=== PATIENT | female | born 1975 | race Caucasian/White ===

== ENCOUNTER 2018-06-21 20:10 | Inpatient (IN) | payer OTHER ==
[~2018-06-21] VITALS: Ht 152.4 cm; Wt 43.1 kg
--- NOTE | 2018-06-21 20:50 | NUR ---
Pre-Assessment Pt is a 42 year old female seen in [facility] intake. Pt is noted to be in wheelchair. Skin is flushed/clammy with noted gross tremors. Pt reports feeling anxious, when introductions are being made. Pt is initially able to respond to questions being asked, however gets very emotional and begins to cry whenever she states her answers. As pre-assessment continues, Pt becomes irritated with the questions, begins crying and states, "How many times do I have to tell you. You already asked me that". This response is repetitive, even though questions were asked for the first time. Pt requires constant redirection. Pt was able to state she is at [facility] for ETOH withdrawal. Pt reports she has been at [facility] ED, 06/21/2017, and has been discharged to be admitted to [facility]. Vital signs taken, rules of the unit explained such as vital signs Q4H, wasting of controlled substances, kitchen access, and smoking patio privileges. Will continue with admission process upon arrival on unit.
[2018-06-21] MEDS ORDERED: MAGNESIUM HYDROXIDE 30 ML LIQUID UDC PO PRN (21:30)
[2018-06-21] MEDS ORDERED: SRC ALCOHOL WITHDRAWAL ADMITTING PROTOCOL XX PRN (21:30)
[2018-06-21] MEDS ORDERED: LORAZEPAM 2 MG/1 ML VIAL IM PRN (21:30)
[2018-06-21] MEDS ORDERED: ONDANSETRON ODT 4 MG TAB.RAPDIS SL PRN (21:30)
[2018-06-21] MEDS ORDERED: LORAZEPAM 1 MG TABLET PO PRN (21:30)
[2018-06-21] MEDS ORDERED: MAG HYDROX/AL HYDROX/SIMETH 30 ML LIQUID UDC PO PRN (21:30)
[2018-06-21] MEDS ORDERED: MIRALAX 17 GM POWD.PACK PO PRN (21:30)
[2018-06-21] MEDS ORDERED: ONDANSETRON 4 MG/2 ML VIAL IM PRN (21:30)
[2018-06-21] MEDS ORDERED: ACETAMINOPHEN 325 MG TABLET PO PRN (21:30)
[2018-06-21] MEDS ORDERED: diphenhydrAMINE 50 MG CAPSULE PO PRN (21:30)
[2018-06-21] MEDS ORDERED: LOPERAMIDE HCL 2 MG CAPSULE PO PRN ×2 (21:30)
[2018-06-21 21:51] LABS: BASOPHILS % (AUTO) 0.5 % (0.0-2.0); EOSINOPHILS % (AUTO) 0.7 % (0.0-7.0); HEMATOCRIT 34.8 % (31.2-41.9); HEMOGLOBIN 12.2 g/dL (10.9-14.3); LYMPHOCYTES # (AUTO) 0.8 K/uL (20.0-40.0); LYMPHOCYTES % (AUTO) 10.3 % (20.5-51.5); MEAN CORPUSCULAR HGB CONC 35 g/dL (32.3-35.6); MEAN CORPUSCULAR VOLUME 96.5 fL (75.5-95.3); MONOCYTES # (AUTO) 0.5 K/uL (2.0-10.0); MONOCYTES % (AUTO) 7.5 % (0.0-11.0); PLATELET COUNT (AUTO) 282 K/uL (179-408); WHITE BLOOD COUNT (AUTO) 7.4 K/uL (3.8-11.8)
[2018-06-21 21:52] LABS: *URINE HCG, QUAL NEGATIVE (NEGATIVE)
[2018-06-21] MEDS ORDERED: THIAMINE HCL 200 MG/2 ML VIAL IM ONE (22:00)
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
[2018-06-21 22:01] LABS: *AMPHETAMINE, URINE NEGATIVE (NEGATIVE); *BARBITURATE, URINE NEGATIVE (NEGATIVE); *CANNABINOID, URINE NEGATIVE (NEGATIVE); *COCCAINE, URINE NEGATIVE (NEGATIVE); *OPIATE, URINE NEGATIVE (NEGATIVE); *PHENCYCLIDINE SCREEN,URINE NEGATIVE (NEGATIVE)
[2018-06-21 22:07] LABS: ETHANOL < 3 MG/DL (0-0)
[2018-06-21 22:10] LABS: ALANINE AMINOTRANSFERASE 138 U/L (14-59); ALKALINE PHOSPHATASE 111 U/L (50-136); AMYLASE 63 U/L (25-115); ASPARTATE AMINOTRANSFERASE 130 U/L (15-37); BILIRUBIN,TOTAL 0.8 mg/dL (0.2-1.0); CARBON DIOXIDE 27 mmol/L (21-32); CHLORIDE 93 mmol/L (98-107); CREATININE 0.6 mg/dL (0.6-1.3); GLUCOSE 86 mg/dL (74-106); LIPASE 202 U/L (73-393); MAGNESIUM 1.7 mg/dL (1.8-2.4); TOTAL PROTEIN, SERUM 8.4 g/dL (6.4-8.2); UREA NITROGEN, BLOOD 13 mg/dL (7-18)
[2018-06-21 22:14] LABS: POTASSIUM 2.7 mmol/L (3.5-5.1)
[2018-06-21] MEDS: IBUPROFEN 600 MG TABLET PO PRN (22:20)
[2018-06-21] MEDS: LORAZEPAM 1 MG TABLET PO PRN (22:20)
--- NOTE | 2018-06-21 22:20 | NUR ---
PRN Valium and Motrin administration Patient is irritable, emotional, anxious, restless, agitated, has bilateral hand tremors and generalized body aches .CIWA 16 Addendum: 06/22/18 at 0610 by RAJI OLMSTEAD LVN Error: Patient was not given an Ativan
--- NOTE | 2018-06-21 22:20 | NUR ---
PRN Ativan and Motrin administration Patient is irritable, emotional, anxious, restless, agitated, has bilateral hand tremors and generalized body aches .CIWA 16
[2018-06-21 22:21] LABS: THYROID STIMULATING HORMONE 5.383 mIU/mL (0.358-3.740)
[2018-06-21] MEDS ORDERED: POTASSIUM CHLORIDE 20 MEQ TAB.PRT.SR PO ONE (23:00)
--- NOTE | 2018-06-21 23:20 | NUR ---
PRN Motrin and Ativan re-assessment Patient Motrin and Ativan helpful and effective. CIWA 12
[2018-06-21] MEDS ORDERED: MAGNESIUM OXIDE 400 MG TABLET PO ONE (23:30)
[2018-06-22] VITALS: BP 134/88
[2018-06-22] MEDS ORDERED: ONDA4TAB11 PO (00:52)
[2018-06-22] MEDS ORDERED: CHLO25CA10 PO (00:52)
[2018-06-22 04:00] VITALS: BP 131/87
--- NOTE | 2018-06-22 05:35 | NUR ---
PRN Ativan administration Patient reports anxiety, restlessness and has bilateral hand tremors. CIWA 11
--- NOTE | 2018-06-22 06:35 | NUR ---
PRN Ativan re-assessment Ativan unable to re-assess. Patient lying in bed with eyes closed. Respiration even and unlabored. Will continue to monitor
--- NOTE | 2018-06-22 07:27 | NUR ---
End of shift note Patient slept 3 hours. Fluid intake 1,000 ml. Voided x 4 . No BM. Patient has laceration on top of her head and left hand swollen. Dr. Joel aware with no new order. Patients magnesium was replaced. Potassium level was 2.7 and was replaced. Patient was anxious, restless, irritable , has bilateral hand tremors and generalized discomfort. CIWA was 16 upon admission. PRN Ativan 2 mg and Motrin given. Patient had difficulty falling asleep during the night. At 0535, patient was anxious and restless. PRN Ativan 1 mg. Safety measures in place. Will continue to monitor.
--- NOTE | 2018-06-22 07:35 | NUR ---
START OF SHIFT Endorse rcvd from ongoing nurse, client is in room, a/o x 4, she appears disheveled, malnourished, dark [place] under his eyes. She presents with anxious mood, flat affect, flushed facial skin, gross tremors, difficulty thinking clearly, and difficulty concentrating. Client reports headache, anxiety, and sweats. Client is on 1:1 sitter promoting safety, d/t BLE weakness. Encourage client to increase PO fluid intake as tolerated to facilitate detox. PRN Ativan 2mg PO for CIWA 11 @ 0535. Client slept for 3 hrs. Seizure precautions. Side rails x 2 up/padded. Call light within reach. Will continue to monitor.
[2018-06-22 08:03] LABS: CREATININE 0.7 mg/dL (0.6-1.3); POTASSIUM 3.2 mmol/L (3.5-5.1)
[2018-06-22] MEDS: IBUPROFEN 600 MG TABLET PO PRN (08:20)
[2018-06-22] MEDS: THIAMINE HCL 100 MG TABLET PO SCH (08:20)
[2018-06-22] MEDS: FOLIC ACID 1 MG TABLET PO SCH (08:20)
[2018-06-22] MEDS: MULTIVITAMINS,THERAPEUTIC TABLET PO SCH (08:20)
[2018-06-22] MEDS: LORAZEPAM 1 MG TABLET PO PRN (08:25)
--- NOTE | 2018-06-22 08:25 | NUR ---
CIWA 21 & PRN Ativan 2mg PO, Motrin 600mg PO for NG 6/10 administered Client is alert, orient to name, place, and situation. Client appears disheveled, malnourished, dark [place] under his eyes, anxious mood, flat affect, flushed facial skin, gross tremors, difficulty thinking clearly, and difficulty concentrating. Client reports headache, anxiety, and sweats. Encourage client to increase PO fluid intake to facilitated detox. Call light within reach. Will continue to monitor. Sitter at bedside promoting safety d/t lower lower extremities weakness.
[2018-06-22 08:29] VITALS: BP 129/89
[2018-06-22] MEDS ORDERED: TUBERCULIN,PURIF.PROT.DERIV. 5 TU/0.1 ML TEST ID ONE (09:00)
--- NOTE | 2018-06-22 09:25 | NUR ---
Reassess PRN Ativan 2mg PO, Motrin 600mg, client is in bed, sounds asleep, easy to awaken, RR 16, spO2 @ 97% on RA. Will continue to monitor. Call light within reach.
--- NOTE | 2018-06-22 09:36 | NUR ---
[facility] 13 Client presents with anxious mood, anhedonia, cold/chills, body aches, restless legs, sweats, clammy skin, and agitation. Schedule Valium 5mg PO. Call light within reach. Will continue to monitor. Addendum: 06/22/18 at 1013 by BEATRICE CREWS RN Wrong Client
[2018-06-22] MEDS ORDERED: 5 DAY TAPER OF LORAZEPAM -SERENITY PROTOCOL PO PRN (11:30)
[2018-06-22] MEDS ORDERED: POTASSIUM CHLORIDE 20 MEQ TAB.PRT.SR PO ONE (11:30)
--- NOTE | 2018-06-22 11:58 | NUR ---
Air Pollution Auditor completed L wrist XR
--- NOTE | 2018-06-22 12:32 | NUR ---
K-dur 40mEq PO administered as supplement for Potassium 3.2.
[2018-06-22 12:33] VITALS: BP 149/99
[2018-06-22] MEDS: LORAZEPAM 1 MG TABLET PO SCH ×3 (12:33→20:57)
--- NOTE | 2018-06-22 12:33 | NUR ---
CIWA 22 Client presents with anxious mood, agitation, gross tremors, clod/chills, nauseous, sweats, difficulty concentrating, difficulty thinking clearly, emotional volatility. Client reports feeling irritable, emotional, anxious, restlessness, and shaking. Schedule Ativan 2mg PO administered. Will continue to monitor. Call light within reach. Sitter at bedside.
--- NOTE | 2018-06-22 13:33 | NUR ---
PRN ZOFRAN Patient reported feeling nauseated no episode of emesis present, PRN Zofran 4mg SL given as ordered. Will cont to monitor and reassess for effectiveness.
--- NOTE | 2018-06-22 14:33 | NUR ---
Reassess Zofran 4mg SL, client reports relief from nausea.
--- NOTE | 2018-06-22 16:15 | NUR ---
CIWA 18 Client continues to presents with anxiety, gross tremors, irritability, stomach cramps, poor appetite, and fatigue. Schedule Valium 5mg PO administered. call light within reach.
[2018-06-22 16:19] VITALS: BP 132/87
--- NOTE | 2018-06-22 19:23 | NUR ---
END OF SHIFT Endorse client to incoming nurse, client is in room, a/o x 4, client continues to presents with anxiety, gross tremors, irritability, stomach cramps, poor appetite, and fatigue. Client denies N/V/D. L wrist/hand swollen, impression from X-ray's shows no fracture. Client continue on a 1:1 sitter promoting safety. Client is on 1st of 5 day Valium taper. Last CIWA 18 @ 1600. PRN medications administered and noted per protocol. Client is not compliant with group therapy due to above withdrawal symptoms. Consumes 50% of meals. Adequate PO fluid intake 2628mL, void x 6, stool x 2. Call light within reach.
[2018-06-22 20:00] VITALS: BP 121/74
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
[2018-06-22] MEDS ORDERED: DICYCLOMINE HCL 20 MG TABLET PO ONE (20:45)
[2018-06-22] MEDS: MIRTAZAPINE 15 MG TABLET PO SCH (20:57)
--- NOTE | 2018-06-22 20:58 | NUR ---
One-time Bentyl Patient c/o abdominal cramps. Contacted MD and he ordered one-time Bentyl 20 mg PO. Administered. Will reassess.
--- NOTE | 2018-06-22 21:58 | NUR ---
Laron reassess Patient asleep on bed, with no SOB nor facial grimacing noted. Addendum: 06/23/18 at 0152 by RUSTY CONNER RN Correction: Susana reassess
[2018-06-22] MEDS: HYDROXYZINE PAMOATE 25 MG CAPSULE PO PRN (23:28)
[2018-06-22] MEDS: CLONIDINE HCL 0.1 MG TABLET PO PRN (23:29)
--- NOTE | 2018-06-22 23:30 | NUR ---
PRN Clonidine and Vistaril Patient reported that she was asleep when the knock on her door woke her up. She appears anxious, agitated and with tremors. Administered Clonidine 0.1 mg PO PRN and Vistaril 50 mg PO PRN. Will reassess.
[2018-06-23 00:30] VITALS: BP 132/81
--- NOTE | 2018-06-23 00:30 | NUR ---
Clonidine and Vistaril reassess Patient continues to be easily agitated, is tremulous, fidgety, restless, with gross tremors, flushed skin and is noted to be guarded. Patient verbalized that she feels like someone is starting at her all the time with 1:1 around and it makes her "uncomfortable". 1:1 was spoken to and it was also explained to patient the importance of the 1:1 sitter. Patient also continues to ambulate with unsteady gait. CIWA=19. contacted and ordered one-time Ativan 2 mg PO. Will carry out order.
[2018-06-23] MEDS ORDERED: LORAZEPAM 1 MG TABLET PO ONE (00:45)
[2018-06-23] MEDS ORDERED: LORAZEPAM 1 MG TABLET PO PRN (01:00)
--- NOTE | 2018-06-23 01:30 | NUR ---
One-time Ativan reassess Patient was given Ativan 2 mg one-time PO for increasing anxiety, agitation and tremulousness. Patient verbalized that her anxiety was relieved, with less tremors and restlessness. Patient verbalized that she is ready to go to be "very soon". 1:1 is at the bedside. CIWA=13.
--- NOTE | 2018-06-23 04:00 | NUR ---
CIWA deferred Patient is asleep on bed, with no SOB nor facial grimacing noted. With 1:1 sitter at bedside. CIWA deferred per MD order.
[2018-06-23 05:00] VITALS: BP 127/85
[2018-06-23 07:18] LABS: ALANINE AMINOTRANSFERASE 95 U/L (14-59); ALKALINE PHOSPHATASE 95 U/L (50-136); ASPARTATE AMINOTRANSFERASE 79 U/L (15-37); BILIRUBIN,DIRECT 0.1 mg/dL (0.0-0.2); BILIRUBIN,TOTAL 0.4 mg/dL (0.2-1.0); CARBON DIOXIDE 25 mmol/L (21-32); CHLORIDE 102 mmol/L (98-107); CREATININE 0.7 mg/dL (0.6-1.3); GLUCOSE 109 mg/dL (74-106); POTASSIUM 4.4 mmol/L (3.5-5.1); TOTAL PROTEIN, SERUM 7.1 g/dL (6.4-8.2); UREA NITROGEN, BLOOD 23 mg/dL (7-18)
--- NOTE | 2018-06-23 07:18 | NUR ---
End of Shift Patient continues to be hyperverbal, emotionally labile and has racing thoughts. She is disheveled and continues to have erratic episodes of anxiety and with gross tremors. She is guarded and was paranoid at times during the shift. Patient's dry scab on the back of her head is noted to have no bleeding noted. Patient continues to have swollen left head and wrist, with pain upon palpation. Patient verbalized relief that negative X-ray results were relayed to her. Patient c/o intermittent nausea, sweating and hot flushes throughout the shift. PRN Clonidine and Vistaril administered during the shift. One-time Ativan 2mg PO and Bentyl 20 mg PO were also administered and they alleviated patient's withdrawal symptoms. Second day of the 5-day Ativan taper to start today. Fall, universal, seizure and safety prec in place. Call light within reach. Last CIWA=14 and slept for 2 hours. Endorsed to AM shift nurse for continuity of care.
--- NOTE | 2018-06-23 07:45 | NUR ---
START OF SHIFT Pt is a 42 yr old female, AA&O to person, place and situation. Pt was admitted on 06/21/18 for ETOH withdrawal and is on 5 day Ativan taper as ordered. Received report from night warehouse selector nurse. Pt was given Clonidine PRN, Vistaril PRN, Bentyl x1 and Ativan 2mg x1. Medication was mildly effective. Last CIWA score was 14. Pt reported of sleeping for 2 hrs. Pt was observed agitated and tremulous stating, "I don't feel good, my back is hurting from laying in bed for 14 days from insomnia. They said I can't go anywhere by myself". Pt was redirected and encouraged to walk around the unit for increase strength and exercise. Pt then stated, "I can't walk, my foot is some what broken". Pt is observed walking on her own without difficulty. Pt remains on 1:1 for unsteady gait. Pt states she does not want to be continued being "stared at constantly". Pt was educated on the importance of 1:1 sitter. Pt needs to be redirected. Pt was encouraged increase fluid intake. Will continue to monitor.
[2018-06-23 08:00] VITALS: BP 125/86
[2018-06-23] MEDS: FOLIC ACID 1 MG TABLET PO SCH (08:39)
[2018-06-23] MEDS: THIAMINE HCL 100 MG TABLET PO SCH (08:39)
[2018-06-23] MEDS: MULTIVITAMINS,THERAPEUTIC TABLET PO SCH (08:39)
[2018-06-23] MEDS ORDERED: LORAZEPAM 1 MG TABLET PO SCH (09:00)
--- NOTE | 2018-06-23 10:14 | NUR ---
Therapist prompted client to attend all group therapy sessions. Client refused, stating that it isn't going to help her.
--- NOTE | 2018-06-23 10:40 | NUR ---
CLARIFICATION Pt stated of taking 5mg of Valium daily at bedtime. Pt refused to explained the length of time. Per Pt's father, pt has been taking more than prescribed for more than a year. Dr. Joel was made aware.
[2018-06-23] MEDS: CLONIDINE HCL 0.1 MG TABLET PO PRN ×2 (10:44→20:22)
--- NOTE | 2018-06-23 10:44 | NUR ---
PRN GIVEN Pt was observed with increase anxiety and agitation m/b difficulty staying still and using inappropriate language. Pt is observed with gross tremors throughout her body, tactile stimulans and unsteady gait. Pt is observed with episodes of confusion. Pt was stating, "I can not be here, it's $20,000 to be here and my insurance does not cover it. That is my life savings for school and now my life is ruined because I can not go back to school. I don't have my phone or my credits cards." Pt was redirected multiple times and ensured about her insurances. Pt was given Ativan 2mg PO PRN and Clonidine 0.1mg PO PRN as ordered. Pt was encouraged increase fluid intake. Will continue to monitor.
--- NOTE | 2018-06-23 11:44 | NUR ---
PRN RE-ASSESSMENT Ativan PRN and Clonidine PRN was mildly effective. Pt continues to be observed with increase anxiety and pacing in the hallway or constantly going to smoke. Pt continues to be emotionally volatile and repetitive. Pt remains on 1:1 for safety. Will continue to monitor.
[2018-06-23 12:00] VITALS: BP 133/80
[2018-06-23] MEDS ORDERED: 4 DAY TAPER VALIUM-SERENITY PROTOCOL PO PRN (12:15)
[2018-06-23] MEDS: DIAZEPAM 5 MG TABLET PO SCH ×3 (13:14→20:22)
[2018-06-23] MEDS: QUETIAPINE FUMARATE 25 MG TABLET PO PRN ×2 (13:14→20:22)
--- NOTE | 2018-06-23 13:14 | NUR ---
PRN GIVEN Pt continues to be observed restless and fidgety and unable to sit still. Pt is c/o increase anxiety and agitation. Seroquel 50mg PO PRN was given as ordered. Encouraged increase fluid intake. Will continue to monitor.
[2018-06-23 14:08] LABS: HEPATITIS B SURFACE AG Negative (Negative)
--- NOTE | 2018-06-23 14:14 | NUR ---
PRN RE-ASSESSMENT Seroquel PRN was effective. Pt continues to be anxious and agitated. Will continue to monitor.
--- NOTE | 2018-06-23 15:32 | NUR ---
Evaluation Note: Met with this pt. briefly in her room per request of RUDDY who was concerned about patient's mental status. Pt. has been talking of leaving [facility]. Pt. was seen in her room where she thinks it is December 21, 2018. She says she is "staying one more day here ". She minimizes her substance dependence and says she has fallen a lot as her bedroom is " very dark." Pt. is upset with her father for checking on her so much and blames him for her problems. She recognizes that her frequent falls could cause serious harm to herself and even and this was underscored by this clinician. She appears to have some organicity from her years of alcohol dependence and benzodiazepine dependence. She is not providing history and complains about her father as the source of all her problems. She is unwilling to examine her issues. She did acknowledge that she " has to want to get sober." She does have a possible delusion that a " homeless man comes and goes from her apartment and got her code which allows him to come and go" . There was no other evidence of psychosis during her evaluation. Her presentation is that of severe alcohol and benzodiazepine dependence. 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 While patient is showing very poor judgement if she leaves [facility], she is currently not meeting any 5150 criteria. She realizes she can have a seizure if she goes home and states " I have no medication " at home. Discussed this case with Dr Kemp who says he feels there is no mental illness here and all her symptoms are related to her polysubstance abuse.
[2018-06-23 16:00] VITALS: BP 136/82
--- NOTE | 2018-06-23 19:10 | NUR ---
END OF SHIFT Pt is a 42 yr old female, AA&Ox3 with periods of confusion. Pt has been observed with increase anxiety, agitation, sweats, chills, generalized body aches and generalized body tremors. Skin is warm and clammy to touch. Pt was given Ativan 2mg PO PRN, Clonidine 0.1mg PO PRN and Seroquel 50mg PO PRN during the day. Pt remains on 1:1 for unsteady gait. Safety precautions observed. Endorsed to director life nurse to continue with care. Addendum: 06/23/18 at 2007 by ILENE MURPHY LVN Last CIWA score was 16 at 1600
[2018-06-23 20:00] VITALS: BP 126/80
--- NOTE | 2018-06-23 20:00 | NUR ---
Start of Shift Patient appears anxious and noted to be hyperverbal, emotionally labile and has racing thoughts. She also noted to have tangential thought process. She has 1:1 sitter at bedside for safety. She ambulates with unsteady gait. Wheelchair is at bedside. Patient holds on to furniture when ambulating to the bathroom. Patient is guarded, disheveled and has erratic episodes of anxiety and with gross tremors. Patient with swollen left head and wrist, with less pain upon movement and palpation per patient as compared to the night before. Patient also c/o right foot pain=3/10. Patient is noted to be confused at times and forgetful at times. Patient also c/o sweating and is seen with bilateral hand tremors. Patients taper of Ativan was changed to Valium today by . Fall, universal, seizure and safety prec in place. Call light within reach. Last CIWA=15. Will continue to monitor.
[2018-06-23] MEDS: MIRTAZAPINE 15 MG TABLET PO SCH (20:22)
--- NOTE | 2018-06-23 20:23 | NUR ---
PRN Clonidine and Seroquel Patient noted to be sweaty, anxious, irritable and easily agitated. Administered Clonidine 0.1 mg PO PRN and Seroquel 50 mg PO PRN. Will reassess.
--- NOTE | 2018-06-23 21:23 | NUR ---
Clonidine and Seroquel reassess Patient is still anxious but verbalized that she "feels a bit better". Patient is easily agitated but redirectable.
[2018-06-23] MEDS ORDERED: DIAZEPAM 10 MG TABLET PO ONE (22:30)
--- NOTE | 2018-06-23 23:02 | NUR ---
One-time Valium Patient is increasingly anxious, easily agitated, argumentative and paranoid. CIWA=18. Contact MD and he ordered Valium 10 mg PO one-time. Administered. Will reassess.
[2018-06-24] VITALS: BP 122/79
--- NOTE | 2018-06-24 | NUR ---
Valium reassess Patient noted to be less tremulous and restless, continues to be anxious and hyperverbal. CIWA=14.
[2018-06-24 04:00] VITALS: BP 134/82
[2018-06-24] MEDS: QUETIAPINE FUMARATE 25 MG TABLET PO PRN ×2 (04:24→13:23)
--- NOTE | 2018-06-24 04:25 | NUR ---
PRN Seroquel Patient noted to be irritable and anxious. Administered Seroquel 50 mg PO PRN. Will reassess.
--- NOTE | 2018-06-24 05:25 | NUR ---
Seroquel reassess Patient verbalized feeling anxious but still stated that she has anxiety. She continues to have bilateral hand tremors.
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
[2018-06-24 08:00] VITALS: BP 124/92
--- NOTE | 2018-06-24 08:00 | NUR ---
START OF SHIFT Pt is a 42 yr old female, AA&Ox3. Pt is noted with periods of forgetfulness. Pt was admitted on 06/21/18 for ETOH/Benzo withdrawal and is on Valium taper as ordered. Received report from building associate nurse. Pt received Seroquel 50mg PRN x2, Clonidine PRN and Valium 10mg x1. medication was effective. Pt slept for 2 hrs. Last CIWA score was 16. Pt is c/o increase anxiety and agitation. Pt continues to be observed with gross tremors on BUE and flat affect. Pt states, "I slept well last night in the past 14 days". Pt remains on 1:1 for unsteady gait. Pediatrist is still pending. Safety precautions observed. Will continue to monitor.
[2018-06-24] MEDS: FOLIC ACID 1 MG TABLET PO SCH (08:39)
[2018-06-24] MEDS: THIAMINE HCL 100 MG TABLET PO SCH (08:39)
[2018-06-24] MEDS: MULTIVITAMINS,THERAPEUTIC TABLET PO SCH (08:39)
[2018-06-24] MEDS: DIAZEPAM 5 MG TABLET PO SCH ×3 (08:39→20:36)
[2018-06-24] MEDS ORDERED: LORAZEPAM 1 MG TABLET PO SCH (09:00)
[2018-06-24 12:00] VITALS: BP 142/88
[2018-06-24] MEDS: CLONIDINE HCL 0.1 MG TABLET PO PRN ×2 (13:23→20:36)
--- NOTE | 2018-06-24 13:23 | NUR ---
PRN GIVEN Pt was c/o increase anxiety and agitation. Seroquel 50mg PO PRN and Clonidine 0.1mg PO PRN was given as ordered. Encouraged increase fluid intake. Will continue to monitor.
--- NOTE | 2018-06-24 13:40 | NUR ---
NSG NOTES Pt was seen and examined by Pediatrist. Pt signed consent for right heel wound debridement. Procedure was completed by Dr. Crespo Pediatrist without difficulty. Addendum: 06/24/18 at 1543 by ILENE MURPHY LVN CORRECTION IN DOCUMENTATION Pt was seen and examined by Dr. Lugo, Glazing Machine Operator.
--- NOTE | 2018-06-24 14:23 | NUR ---
PRN RE-ASSESSMENT Clonidine PRN and Seroquel PRN was effective. Pt continues to c/o anxiety but is able to cope with anxiety level. Will continue to monitor.
[2018-06-24 16:00] VITALS: BP 128/93
--- NOTE | 2018-06-24 16:30 | NUR ---
MD COMMUNICATION Pt is noted with increase HR of 130. Dr. Joel was made aware with new order for EKG. When RT arrived on the unit for EKG, patient was uncooperative and removing the electrodes. EKG was incomplete. Dr. Joel was made aware with NNO.
--- NOTE | 2018-06-24 19:10 | NUR ---
END OF SHIFT Pt is a 42 yr old female, AA&O to person, place and situation. Pt was admitted on 06/21/18 for ETOH withdrawal and is on a Valium taper as ordered. Pt has been observed with periods of forgetfulness and repeating thought process. Pt was c/o increase anxiety, agitation, sweats and chills. Pt is noted hyper verbal, gross tremors on BUE, flat affect and emotional volatile at times. Pt was given Seroquel PRN and Clonidine PRN as ordered. Medication was effective. Last CIWA score was 17 at 1600. Pt remains on 1:1 for unsteady gait. Pt was seen and examined by Life Agent with new wound treatment on right heel s/p wound debridement starting tomorrow morning. Pt was encouraged increase fluid intake for hydration. Endorsed to night nurse nurse to continue with care.
--- NOTE | 2018-06-24 19:30 | NUR ---
Start of shift note Pt is a 42 year old female admitted on 06/21/18 for medically supervised ETOH and Benzo withdrawal. Pt is on a 4 day Valium taper. Pt is on fall and seizure precautions. Pt is on a 1:1 for unsteady gait. Per endorsement pt had PRN Clonidine and Seroquel during day shift. Pt had elevated HR and EKG was performed but it was unsuccessful and will attempt tomorrow 06/25/2018. Upon rounds pt was noted in room watching tv, explain plan of care and she verbalized understanding. Safety measures in place, bed locked in low position, side rails up x2, and call light within reach. Will continue to monitor.
[2018-06-24 20:00] VITALS: BP 127/92
[2018-06-24] MEDS: QUETIAPINE FUMARATE 100 MG TABLET PO PRN (20:35)
--- NOTE | 2018-06-24 20:35 | NUR ---
PRN Clonidine, Seroquel and Vistaril Pt was presenting with anxiety, agitation and difficulty falling asleep. Administered PRN Clonidine, Seroquel and Vistaril and pt tolerated well. Safety measures in place and will continue to monitor.
[2018-06-24] MEDS: MIRTAZAPINE 15 MG TABLET PO SCH (20:36)
[2018-06-24] MEDS: HYDROXYZINE PAMOATE 25 MG CAPSULE PO PRN (20:36)
--- NOTE | 2018-06-24 21:35 | NUR ---
Reassessment PRN Clonidine, Seroquel and Vistaril Pt was noted in bed resting with eyes closed, breathing and unlabored. medication was noted to be effective. Safety measures in place and will continue to monitor.
[2018-06-25] MEDS: IBUPROFEN 600 MG TABLET PO PRN (06:17)
--- NOTE | 2018-06-25 06:17 | NUR ---
PRN Motrin Pt was presenting with pain the left warm, stated it was a 5/10. Administered PRN Motrin and pt tolerated well. Will continue to monitor.
--- NOTE | 2018-06-25 07:28 | NUR ---
End of shift note Pt is a 42 year old female admitted on 06/21/18 for medically supervised ETOH and Benzo withdrawal. Pt is on a 4 day Valium taper. Pt is on fall and seizure precautions. Pt's last CIWA was 13. Pt is on a 1:1 for unsteady gait. Pt had PRN Clonidine, Seroquel, Motrin and Vistaril during this shift. Pt continues to present with anxiety, tremors, agitation, sweats and hyperverbal. Pt was educated about increasing fluid intake and also encourage pt to participate in program group. Pt slept for 8 hours and had a total of 855ml. Pt voided x 2 and had no bowel movements during this shift. Safety measures in place, bed locked in low position, side rails up x2, and call light within reach. Will endorse to day shift.
--- NOTE | 2018-06-25 07:30 | NUR ---
Start Of Shift Report received from mine shifter nurse. Pt is a 42 year old female admitted on 06/21/18 for medically supervised ETOH and Benzo withdrawal. Per mine shifter nurse pt's last CIWA was 13. Pt continues 4 day Valium taper. Upon start of shift pt noted laying in bed with eyes closed resting, breathing even and unlabored. Pt's room appears unorganized and messy, pt has clothes thrown around the room. Pt has some wounds on her head and her hands which she has a wound care consult for. Pt in on a 1:1 for unsteady gait. Pt appears anxious, sweaty and flushed. During assessment, pt is AOx4. Lung sounds clear bilaterally. Radial pulse is regular and non-bounding. Abdomen soft and non-tender. Pt's skin is warm and intact. pt denies any pain at the moment. Encouraged pt to drink plenty of fluids to keep hydrated and help the detox process. Pt received No Clonidine Seroquel and Motrin per mine shifter nurse medication is effective. pt slept a total of 8 hours last night. Bed in lowest position. Side rails up x2. Call light functioning and within reach. All needs attended and met. Will continue to monitor.
[2018-06-25 08:00] VITALS: BP 115/63
[2018-06-25] MEDS ORDERED: LORAZEPAM 1 MG TABLET PO SCH (09:00)
[2018-06-25] MEDS: NEOMY/BACITRAC/POLYMI OINT 28.35 GM TUBE TOP SCH (09:00)
[2018-06-25] MEDS: DIAZEPAM 5 MG TABLET PO SCH ×2 (09:28→20:55)
[2018-06-25] MEDS: FOLIC ACID 1 MG TABLET PO SCH (09:28)
[2018-06-25] MEDS: THIAMINE HCL 100 MG TABLET PO SCH (09:28)
[2018-06-25] MEDS: MULTIVITAMINS,THERAPEUTIC TABLET PO SCH (09:28)
[2018-06-25 12:00] VITALS: BP 123/94
[2018-06-25 16:00] VITALS: BP 129/86
--- NOTE | 2018-06-25 18:51 | NUR ---
end of shift note: Pt is a 42 yr old female, AA&O to person, place and situation. [facility] and is on 5 day Ativan taper as ordered. pt is without A/R noted. pt was removed off the 1:1. pt without episodes of disorientation and agitation. pt also has new orders for wound consult for possible fungal infection. last documented ciwa is 11. will endorse pt to overnight houseperson nurse.
--- NOTE | 2018-06-25 19:10 | NUR ---
Start of Shift Received 42 year old female patient admitted to [facility] 06/21/18 for medically supervised withdrawal from ETOH. Pt currently on day 4 of a 5 day Ativan taper, which she is tolerating well. Pt did not receive any PRN medications on day shift. Last CIWA 11 @1600. Pt is participating in group. Bed low, side rails up x 2, and call beach in reach. Will continue to monitor. Addendum: 06/26/18 at 0159 by FELICITA MC RN Correction: Pt is on day 3 of a 4 day Valium taper
[2018-06-25 20:00] VITALS: BP 129/91
--- NOTE | 2018-06-25 20:00 | NUR ---
CIWA 13 Pt is anxious, agitated, shaky, clammy, and fidgety. Will continue to monitor.
--- NOTE | 2018-06-25 20:30 | NUR ---
Nurse Note Pt refused to have foot assessed.
[2018-06-25] MEDS: MIRTAZAPINE 15 MG TABLET PO SCH (20:54)
[2018-06-25] MEDS: QUETIAPINE FUMARATE 100 MG TABLET PO PRN (22:12)
--- NOTE | 2018-06-25 22:12 | NUR ---
PRN Seroquel Pt requested Seroquel for sleep. Given per order. Will monitor effect.
--- NOTE | 2018-06-25 23:12 | NUR ---
Reassess PRN Seroquel Medication effective. Pt resting with eyes closed. Respirations are even and unlabored. Bed low, side rails up x 2, call beach in reach. Will continue to monitor.
--- NOTE | 2018-06-26 | NUR ---
CIWA deferred/ Vitals refused. Pt resting with eyes closed. Respirations are even and unlabored. Bed low, side rails up x 2, and call beach in reach. Will continue to monitor.
[2018-06-26] MEDS: IBUPROFEN 600 MG TABLET PO PRN ×2 (03:06→20:51)
--- NOTE | 2018-06-26 03:06 | NUR ---
CIWA 11/ PRN Motrin Pt awakened with c/o left hand pain 02/17. Medicated per order. Will monitor effect.
[2018-06-26 04:00] VITALS: BP 111/77
--- NOTE | 2018-06-26 04:06 | NUR ---
Reassess PRN Motrin Medication effective. Pt resting with eyes closed. Respirations are even and unlabored. Bed low, side rails up x 2, and call beach in reach. Will continue to monitor.
--- NOTE | 2018-06-26 06:43 | NUR ---
End of Shift Endorsing 42 year old female patient admitted to [facility] 06/21/18 for medically supervised withdrawal from ETOH. Pt currently on day 4 of a 4 day Valium taper, which she is tolerating well. Pt received PRN Seroquel and Motrin on awake overnight monitor. Last CIWA 11 @0300. Pt quietly sitting in bed watching TV. Respirations are even and unlabored. Bed low, side rails up x 2, and call beach in reach. PO intake 500 ml, voided x 2, BM x 0, and slept 3 hours.
--- NOTE | 2018-06-26 07:30 | NUR ---
START OF SHIFT Pt 42 y/o female admitted for etoh withdrawal. Pt received in room on bed awake watching television. Pt alert and oriented to name, place, and time. Perr[place]. Skin warm and moist to touch. Respirations even and unlabored. Appears disheveled. Clothes and empty drink bottles scattered throughout the room. Encouraged to maintain hygiene. Anxious and restless. Pressured speech. Bilateral hand tremors. Pacing in room. Fidgety. Complaints of generalized discomfort. It was reported that pt slept for 3 hours last night. Pt is on a 4 day valium taper and is on day 4. Bed on lowest position with side rails x2 up for safety. Call light within reach.
[2018-06-26 08:00] VITALS: BP 120/82
[2018-06-26] MEDS: MULTIVITAMINS,THERAPEUTIC TABLET PO SCH (08:58)
[2018-06-26] MEDS: THIAMINE HCL 100 MG TABLET PO SCH (08:58)
[2018-06-26] MEDS: FOLIC ACID 1 MG TABLET PO SCH (08:58)
[2018-06-26] MEDS: NEOMY/BACITRAC/POLYMI OINT 28.35 GM TUBE TOP SCH (08:59)
[2018-06-26] MEDS ORDERED: DIAZEPAM 5 MG TABLET PO SCH (09:00)
[2018-06-26] MEDS ORDERED: LORAZEPAM 1 MG TABLET PO SCH (09:00)
[2018-06-26 12:00] VITALS: BP 126/72
--- NOTE | 2018-06-26 12:00 | NUR ---
WOUND CARE pt was seen by wound EXAMINATION SCORER.
[2018-06-26] MEDS ORDERED: MIRT15TA7 PO (14:25)
[2018-06-26] MEDS ORDERED: QUETIAPINE FUMARATE 100 MG TABLET PO PRN (15:00)
[2018-06-26] MEDS ORDERED: QUETIAPINE FUMARATE 200 MG TABLET PO PRN (15:00)
[2018-06-26 16:00] VITALS: BP 128/72
--- NOTE | 2018-06-26 19:42 | NUR ---
END OF SHIFT Pt 42 y/o female admitted for etoh withdrawal. Pt alert and oriented to name, place, and time. P[place]. Skin warm to touch. Respirations even and unlabored. Appears disheveled. Clothes, food wrappings, and empty drink bottles scattered throughout the room, as well on top of the trash can. Encouraged to maintain hygiene. Anxious and restless. Pressured speech. Pacing. Complaints of generalized discomfort. Last ciwa =8 @1600. Pt attended group activity today. Pt is on a 4 day valium taper and is on day 4. Bed on lowest position with side rails x2 up for safety. Call light within reach.
--- NOTE | 2018-06-26 19:45 | NUR ---
Start of shift note Pt is a 37 year old male admitted on 06/22/18 for medically supervised opiate withdrawal. Pt completed a 5 day Subutex taper. Pts last COWS was 8. Pt is being discharged tomorrow 06/27/18. Per endorsement pt had no PRN medications during day shift. Pt has been compliant with plan of care and has attended treatment group. Pt continues to experience anxiety, agitation and mild tremors. Upon rounds pt was noted in room watching tv, explained plan of care and she verbalized understanding. Safety measures in place, bed locked in low position, side rails up x2, and call light within reach. Will continue to monitor. Addendum: 06/27/18 at 0158 by BRIAN LEI RN Error charting on wrong patient.
--- NOTE | 2018-06-26 19:46 | NUR ---
Start of shift note Pt is a 42 year old female admitted on 06/21/18 for medically supervised ETOH and Benzo withdrawal. Pt completed a 4 day Valium taper. Pt is on fall and seizure precautions. Pts last CIWA was 8. Per endorsement pt had no PRN medications during day shift. Pt has been compliant with plan of care and has attended treatment group. Pt continues to experience anxiety, agitation and mild tremors. Upon rounds pt was noted in room watching tv, explained plan of care and she verbalized understanding. Safety measures in place, bed locked in low position, side rails up x2, and call light within reach. Will continue to monitor.
[2018-06-26 20:00] VITALS: BP 151/91
[2018-06-26] MEDS: MIRTAZAPINE 15 MG TABLET PO SCH (20:51)
--- NOTE | 2018-06-26 20:51 | NUR ---
PRN Seroquel, Motrin and Miralax Pt is presenting with bodyaches, constipation and difficulty falling asleep. Administered PRN Seroquel, Motrin and Miralax and pt tolerated well. Safety measures in place and will continue to monitor.
--- NOTE | 2018-06-26 21:51 | NUR ---
Reassessment PRN Seroquel, Motrin and Miralax Pt was noted in bed resting with eyes closed, breathing even and unlabored. Medication noted to be effective. ongoing assessment for constipation. Pt is breathing even and unlabored and will continue to monitor. Safety measures in place.
--- NOTE | 2018-06-27 07:11 | NUR ---
End of shift note Pt is a 42 year old female admitted on 06/21/18 for medically supervised ETOH and Benzo withdrawal. Pt completed a 4 day Valium taper. Pt is on fall and seizure precautions. Pts last CIWA was 6. Pt had PRN Seroquel, Motrin and Miralax during this shift. Pt continues to experience anxiety, agitation and mild tremors. Pt is being discharged today 06/27/18. Pt slept for 7 hours and had a total of 931 ml. Pt voided x3 and had no bowel movements during this shift. Safety measures in place, bed locked in low position, side rails up x2, and call light within reach. Will endorse to day shift.
--- NOTE | 2018-06-27 07:30 | NUR ---
start of shift note: received pt from awake overnight counselor nurse, pt is in stable condition at this time, pt's last documented ciwa 6, pt is set to discharge today. will assist pt in discharging and continue to meet pt's needs
--- NOTE | 2018-06-27 07:39 | NUR ---
WOUND CARE CONSULT WOUND CARE RECEIVED CONSULT FOR HAND LESIONS. WOUND CARE WILL DEFER CONSULT AND TREATMENT PLAN TO PLASTIC SURGICAL TEAM WHO ARE CURRENTLY FOLLOWING. DPM DR CORDON ALSO FOLLOWING PATIENT FOR FOOT ISSUES. PATIENT WITH ANDREA AT 23, WILL SEE PRN.
[2018-06-27] MEDS: NEOMY/BACITRAC/POLYMI OINT 28.35 GM TUBE TOP SCH (08:28)
[2018-06-27] MEDS: THIAMINE HCL 100 MG TABLET PO SCH (08:29)
[2018-06-27] MEDS: FOLIC ACID 1 MG TABLET PO SCH (08:29)
[2018-06-27] MEDS: MULTIVITAMINS,THERAPEUTIC TABLET PO SCH (08:29)
--- NOTE | 2018-06-27 10:07 | NUR ---
discharge note: pt left the unit in stable condition, pt without acute withdrawal symptoms. pt appeared extremely anxious about discharging. pt will be transferred to aftercare with sober general office assistant. pt teaching administered multiple times, but pt was agitated about not getting her valium prescription returned.
== END 2018-06-27 10:07 | DRG 988 ==
LOC: SRC 20:11
PROVIDERS: ADMIT Family Medicine Addiction Medicine; ATTEND Family Medicine Addiction Medicine
PROC: HZ2ZZZZ Detoxification Services for Substance Abuse Treatment (ICD-10-PCS; principal; 2018-06-21)
PROC: HZ31ZZZ Individual Counseling for Substance Abuse Treatment, Behavioral (ICD-10-PCS; 2018-06-23)
PROC: HZ41ZZZ Group Counseling for Substance Abuse Treatment, Behavioral (ICD-10-PCS; 2018-06-24)
PROC: 0JCQ0ZZ Extirpation of Matter from Right Foot Subcutaneous Tissue and Fascia, Open Approach (ICD-10-PCS; 2018-06-24)
PROC: 0JBJ0ZZ Excision of Right Hand Subcutaneous Tissue and Fascia, Open Approach (ICD-10-PCS; 2018-06-26)
PROC: 0JBK0ZZ Excision of Left Hand Subcutaneous Tissue and Fascia, Open Approach (ICD-10-PCS; 2018-06-26)
DX: F10.230 Alcohol dependence with withdrawal, uncomplicated (principal); E87.1 Hypo-osmolality and hyponatremia; Y90.0 Blood alcohol level of less than 20 mg/100 ml; F41.1 Generalized anxiety disorder; F90.9 Attention-deficit hyperactivity disorder, unspecified type; F17.210 Nicotine dependence, cigarettes, uncomplicated; S00.03XA Contusion of scalp, initial encounter; Y04.2XXA Assault by strike against or bumped into by another person, initial encounter; Y92.481 Parking lot as the place of occurrence of the external cause; E87.6 Hypokalemia; R74.0 Nonspecific elevation of levels of transaminase and lactic acid dehydrogenase [LDH]; F32.9 Major depressive disorder, single episode, unspecified; M79.5 Residual foreign body in soft tissue; S60.522A Blister (nonthermal) of left hand, initial encounter; S60.521A Blister (nonthermal) of right hand, initial encounter; X58.XXXA Exposure to other specified factors, initial encounter; Y92.89 Other specified places as the place of occurrence of the external cause; G47.00 Insomnia, unspecified; E83.42 Hypomagnesemia; M79.89 Other specified soft tissue disorders; R94.6 Abnormal results of thyroid function studies
CPT/HCPCS: 36415; 70030-TC; 73110; 73130; 73630; 80307; 80346; 83690; 83735; 84443; 84703; 85025; 86592; 86705; 86803; 87340; 87806; A4663; G0480; J3411